=== PATIENT | male | born 1990 | race Caucasian/White ===

== ENCOUNTER 2025-05-26 11:58 | Emergency (ER) | payer SELFPAY ==
[2025-05-26 13:00] LABS: Hematocrit 44.8 % (42.0-52.0); Hemoglobin 15.7 g/dL (14.0-18.0); Mean Corpuscular Hemoglobin 29.0 pg (27.0-31.0); Mean Corpuscular Volume 82.9 fl (78.0-98.0); Platelet Count 227 10x3/uL (130-400); Red Blood Cell (RBC) Count 5.40 mill/uL (4.70-6.10); White Blood Cell (WBC) Count 5.4 10x3/uL (4.8-10.8)
[2025-05-26 13:06] LABS: ALT (SGPT) 47 U/L (Less than 45); AST (SGOT) 70 U/L (11-34); Albumin 4.5 g/dL (3.1-4.5); Alkaline Phosphatase 55 U/L (40-110); Anion Gap 17 mmol/L (10-20); BUN (Urea Nitrogen) 10 mg/dL (8.9-20.6); Bilirubin, Total 0.7 mg/dL (0.3-1.2); Calc. Creatinine Clearance 0 mL/min (70-130); Calcium 9.7 mg/dL (7.8-10.44); Carbon Dioxide 23 mmol/L (22-29); Chloride 100 mmol/L (98-107); Globulin 3.8 g/dL (2.4-3.5); Glucose 197 mg/dL (70-105); Potassium 3.3 mmol/L (3.5-5.1); Sodium 137 mmol/L (136-145)
[2025-05-26 13:21] LABS: Glucose, Urine (Dipstick) 100 mg/dL (Negative); Leukocyte Negative (Negative); Protein, Urine (Dipstick) 100 mg/dL (Neg-Trace); Specific Gravity, Urine 1.015 (1.005-1.030)
[2025-05-26 13:22] LABS: MDiff Complete? YES
[2025-05-26 13:24] LABS: Cocaine Metabolite Screen Negative (Negative); THC/Cannabinoid Screen Negative (Negative); Tricyclic Screen Negative (Negative)
[2025-05-26 13:42] LABS: Bacteria/HPF 1+ HPF (None Seen); CAUTI Indications for Culture Alt mental st,lethar; RBC/HPF 0-3 HPF (0-3); WBC/HPF 0-3 HPF (0-3)
[2025-05-26 13:43] LABS: Urine Culture Reflex No No
[2025-05-26 13:44] LABS: Troponin I 0.227 ng/mL (< 0.028)
[2025-05-26] MEDS ORDERED: Nitroglycerin 50 MG/250 ML BOT 250 ML ONE (14:19)
[2025-05-26] MEDS ORDERED: cefTRIAXone (ROCEPHIN) 2 GM VIAL ONE (14:39)
[2025-05-26 16:48] LABS: Troponin I 0.219 ng/mL (< 0.028)
== END 2025-05-26 16:11 | disposition short-term general hospital (02) ==
LOC: NAV ERS 11:58
DX: I16.0 Hypertensive urgency (principal); I11.9 Hypertensive heart disease without heart failure; J10.1 Influenza due to other identified influenza virus with other respiratory manifestations; R00.0 Tachycardia, unspecified
CPT/HCPCS: 36416; 71046; 80053; 80306; 81001; 83036; 83605; 83880; 84484; 85025; 87040; 87081; 87428; 87430; 93005; 94760; 96365; 96374; 96375; 96376; 36415-59; J0696; J7030